=== PATIENT | male | born 1965 | race Caucasian/White ===

== ENCOUNTER 2024-08-08 06:08 | Day surgery (SDC) | payer MEDICARE, MEDICAID ==
[~2024-08-08] VITALS: Ht 177.8 cm; Wt 98.7 kg
[~2024-08-08 06:08] MED LIST: AMBIEN PO; CLON-412 PO; COLA50CA3 PO; CYMB1CAP5 PO; FLUT1SPR2; GABA-1172 PO; IBUP200C29 PO; LASI40TA9 PO; LEVO75TA4 PO; LISI10TA22 PO; LISI10TA4 OR; LYRI75CA OR; MELO15TA28 PO; METH-1177 PO; METH1TAB40 OR; METH5TAB2 PO; MULTIVIT PO; NALO4SPR20; NAPR500T OR; NEUR400C OR; NEXI1CAP3 OR; OXYC-208 PO; OXYC10TA3 PO; POTA10PO PO; PREG50CA3 PO; SEMA2PEN SC; SERT50TA2 OR; SIMV20TA2 OR; SIMV20TA22 PO; SOMA350T PO; TAB-TAB PO; TIZA2TA PO; TIZA4CAP PO; TRAM50TA2 OR; TRAZ-252 PO; ULTR50TA PO; ULTRTA PO; VITA200028 PO; ZOLP-189 PO; [UNRECOGNIZED DRUG - OTHER]; [UNRECOGNIZED DRUG - OTHER] PO
[2024-08-08] MEDS ORDERED: NS 1,000 ML IV SCH ×2 (06:20→09:30)
[2024-08-08] MEDS: ceFAZolin SOD 2 GM in IV 1 EA IV ONE (07:30)
[2024-08-08] MEDS: HEPARIN SOD (PORCINE) 5000UNITS/ML 1ML VIAL/SYRINGE SQ ONE (07:48)
[2024-08-08] MEDS ORDERED: fentaNYL 250 MCG/5 ML INJECTION As Ordered ONE (08:09)
[2024-08-08] MEDS ORDERED: MIDAZOLAM INJ 2MG/2ML VIAL As Ordered ONE (08:09)
[2024-08-08] MEDS ORDERED: propofoL 200 MG/20 ML VIAL As Ordered ONE (08:09)
[2024-08-08] MEDS ORDERED: LIDOCAINE 2% 100MG/5ML SDV (FOR ANES.) As Ordered ONE (08:09)
[2024-08-08] MEDS ORDERED: SUGAMMADEX SODIUM 500 MG/5 ML VIAL (BRIDION) As Ordered ONE (08:09)
[2024-08-08] MEDS ORDERED: ONDANSETRON 4MG 2ML VIAL As Ordered ONE (08:09)
[2024-08-08] MEDS ORDERED: ROCURONIUM BROMIDE 50MG/5ML VIAL As Ordered ONE (08:09)
[2024-08-08] MEDS ORDERED: METOCLOPRAMIDE INJ 10MG/2ML VIAL As Ordered ONE (08:09)
[2024-08-08] MEDS ORDERED: ACETAMINOPHEN 1000MG/100ML IV BAG As Ordered ONE (08:09)
[2024-08-08] MEDS ORDERED: KETOROLAC 60MG 2ML VIAL As Ordered ONE (08:18)
[2024-08-08] MEDS ORDERED: HYDROmorphone HCL 2MG/ML 1ML VIAL As Ordered ONE (08:19)
[2024-08-08] MEDS ORDERED: HYDROMORPHONE HCL 0.5 MG/ 0.5 ML SYRINGE IV PRN (09:30)
[2024-08-08] MEDS ORDERED: fentaNYL 100 MCG/2 ML INJECTION IV PRN (09:30)
[2024-08-08] MEDS ORDERED: oxyCODONE 5MG TAB PO PRN (09:30)
[2024-08-08] MEDS ORDERED: ONDANSETRON 4MG 2ML VIAL IV PRN (09:30)
[2024-08-08 10:00] VITALS: BP 106/56; TEMP 97.3; O2SAT 98
[2024-08-08] MEDS ORDERED: dexmedeTOMIDine (4MCG/ML)200MCG/50ML BTL (PRECEDEX) As Ordered ONE (10:00)
== END 2024-08-08 10:16 | disposition home or self-care (01) ==
LOC: M SDC 06:08
PROVIDERS: ATTEND Surgery
DX: K40.90 Unilateral inguinal hernia, without obstruction or gangrene, not specified as recurrent (principal); E11.9 Type 2 diabetes mellitus without complications; E03.9 Hypothyroidism, unspecified; Z79.899 Other long term (current) drug therapy; Z88.5 Allergy status to narcotic agent; Z91.040 Latex allergy status
CPT/HCPCS: 49650; C1781; J0131; J0665; J0690; J1100; J1171; J1885; J2250; J2405; J2765; J3010; S2900